=== PATIENT | male | born 1930 | race Two or more races ===

== ENCOUNTER 2016-10-06 01:42 | Emergency (ER) | payer MEDICARE, OTHER ==
[~2016-10-06] VITALS: Ht 172.7 cm; Wt 38.6 kg
[~2016-10-06 01:42] MED LIST: ALEVE220 MG PO; ASPIR 8181 MG PO; ASPIRIN EC325 MG PO; COREG12.5 MG PO; LISINOPRIL20 MG PO; NITROGLYCERIN0.4 MG SL
[2016-10-06] MEDS ORDERED: NORCO 5-325 TA1 EACH PO (03:49)
[2016-10-06] MEDS ORDERED: MELOXICAM15 MG PO (03:49)
== END 2016-10-06 04:08 | disposition home or self-care (01) ==
LOC: ED 01:42
DX: M54.2 Cervicalgia (principal); F17.200 Nicotine dependence, unspecified, uncomplicated; Z88.0 Allergy status to penicillin; Z79.82 Long term (current) use of aspirin
CPT/HCPCS: 70450; 72125; 96372; 99284; J1885

== ENCOUNTER 2017-07-21 23:13 | Emergency (ER) | payer MEDICARE, OTHER ==
[~2017-07-21] VITALS: Ht 172.7 cm; Wt 84.4 kg
--- OUTSIDE RECORDS SUMMARY | ~2017-07-21 | XMS | Clinical Summary ---
Demographics + + + | Address | [address] | | | [place] [address] | + + + | Home Phone | | + + + | Preferred Language | Unknown | + + + | Marital Status | | + + + | Orthodox Affiliation | Unknown | + + + | Race | Unknown | + + + | Ethnic Group | Unknown | + + + Author + + + | Author | [facility] | + + + | Organization | [facility] | + + + | Address | Unknown | + + + | Phone | Unavailable | + + + Support + + +---------+ + | Name | Relationship | Address | Phone | + + +---------+ + | Tip Stringer | ECON | Unknown | | + + +---------+ + | Shanti Win | ECON | Unknown | | + + +---------+ + | Detailed,Message | ECON | Unknown | | + + +---------+ + Care Team Providers + +------+ + | Care Fuel Assembler Name | Role | Phone | + +------+ + | Sammy Zimmerman | PP | | + +------+ + Allergies + + + + + + | Active Allergy | Reactions | Severity | Noted | Comments | | | | | Date | | + + + + + + | Penicillins | Hives, Shortness of | High | 07/01/19 | | | | Breath | | 14 | | + + + + + + Current Medications + + +--------+---------+------+------+-------+ | Prescription | Sig. | Disp. | Refills | Star | End | Statu | | | | | | t | Date | s | | | | | | Date | | | + + +--------+---------+------+------+-------+ | aspirin 81 MG EC | Take 81 mg by mouth | | | | | Activ | | tablet | daily with | | | | | e | | | breakfast. | | | | | | + + +--------+---------+------+------+-------+ | nitroGLYCERIN | Place 1 tablet under | 25 | 3 | 11/2 | | Activ | | (NITROSTAT) 0.4 MG | the tongue every 5 | tablet | | 4/20 | | e | | SL tablet | (five) minutes as | | | 15 | | | | | needed for Chest | | | | | | | | pain. | | | | | | + + +--------+---------+------+------+-------+ | carvedilol (COREG) | Take 1 tablet by | 180 | 3 | 03/2 | | Activ | | 12.5 MG tablet | mouth 2 (two) times | tablet | | 3/20 | | e | | | daily. | | | 16 | | | + + +--------+---------+------+------+-------+ | lisinopril | Take 1 tablet by | 90 | 3 | 03/0 | | Activ | | (ZESTRIL) 10 MG | mouth daily. | tablet | | 9/20 | | e | | tablet | | | | 17 | | | + + +--------+---------+------+------+-------+ Active Problems + + + | Problem | Noted Date | + + + | CAD (coronary artery disease) | 06/29/2013 | + + + + + | Last Assessment & Plan: Low grade CAD, LVEF 55%. 84yo | | NAIM, doing relatively well, he minimally active active, | | complaining of exertional shortness of breath and fatigue, he is | | unaware of any orthopnea or PND, no significant edema. He has | | relatively mild chronic stable angina. In the last 6 months is | | only used nitroglycerin once. Denies any chest pain at rest. | | Complicated by DJD, and place with the assistance of a cane. | | Device stable. Echocardiogram shows LVEF stable, valvular heart | | disease is not significant. His labs reviewed with patient. | | Tolerating medications. No changes in therapy. Again he is | | encouraged to stop smoking.Hx CABG: noHx PCI/stent: noHx | | Pacemaker/ICD: 01/23/2009, Medtronic Adapta [id number], SN: | | [id number].Last Cath, 04/18/2008: luminal irreg, LVEF 55%.Last | | Echo, 04/25/2015: moderate LV enlargement (IVSd 12mm, LVPWd 10mm, | | LVEDd 58mm), LVEF 55-60%, inferior hypokinesis, pacing catheters | | in RA.RV, trace AI, trace TR, est systolic PAP 27-32mmHg.Last | | Stress Test, [facility], 07/12/2013: large apical infarction, no | | ischemia, LVEF 39%.ECG, 04/19/2015: AV-paced 100%. | + + + + + | Cardiomyopathy, nonischemic | 06/29/2013 | + + + + + | Last Assessment & Plan: Non-ischemic CM. Stable, no signs of | | heart failure.Last Echo, 04/25/2015: moderate LV enlargement | | (IVSd 12mm, LVPWd 10mm, LVEDd 58mm), LVEF 55-60%, inferior | | hypokinesis, pacing catheters in RA.RV, trace AI, trace TR, est | | systolic PAP 27-32mmHg. | + + + + + | Cardiac pacemaker in situ | 06/29/2013 | + + + + + | Last Assessment & Plan: 3rd degree AVB, pacemaker therapy. | | Device stable.Pacemaker/ implanted 01/23/2009, Medtronic Adapta | | ADDR01, SN: [id number].Pacemaker interrogated by Dr Macdonald, | | 04/19/2015: AAI-R <-> DDD-R (60/130), battery at 2.77V, 4+yrs, | | device stable, A-paced 78%, V-paced >100%, Mode Switch <0.1%, | | rare HVR, longest <7sec non-sustained VT, 171bpm. | + + + + + | Hypertension | 06/29/2013 | + + + + + | Last Assessment & Plan: Hypertension, controlled, continue | | current meds at current dose (carvedilol, lisinopril). Recent | | labs reviewed with patient.Lab, 04/20/2015: T Chol: 138, LDL-Chol: | | 86, HDL-Chol: 36, Tri Liver | | enzymes NML, K: 4.7, BUN/Cr: 14/1.2 (GFR 59), glu: 121 | | TSH: 1.91, free T4: 1.21 | + + + + + | Diabetes mellitus, type 2 | 06/29/2013 | + + + + + | Last Assessment & Plan: DM2, diet controlled, managed by PCP. | + + + + + | Smoker | 06/29/2013 | + + + | Hepatic abscess | 01/18/2011 | + + + + + | Overview: The patient has a 5.1 x 9.5 cm hepatic abscess with | | cultures from his blood and the abscess cavity positive for | | Klebsiella pneumoniae, sensitive to Cipro. He is taking Cipro as | | well as oral Flagyl for amoebic coverage, and will ultimately | | need therapy with a luminal agent for amoeba. The plan is to have | | a CT scan on January 24 following which she will be seen | | in the interventional radiology clinic to determine whether or | | not a drain needs to be placed or can safely be placed. He was | | instructed to followup in the infectious diseases clinic in 2 | | weeks, the week of January 27. | + + Family History + + +------+ + | Medical History | Relation | Name | Comments | + + +------+ + | Heart disease | Father | | | + + +------+ + | Heart disease | Mother | | | + + +------+ + | Kidney disease | Mother | | | + + +------+ + + +------+ + + | Relation | Name | Status | Comments | + +------+ + + | Father | | | heart disease | | | | (Age | | | | | 68) | | + +------+ + + | Mother | | | DMII,renal disease, heart disease | | | | (Age | | | | | 79) | | + +------+ + + Social History + + + +--------+------+ | Tobacco Use | Types | Packs/Day | Years | Date | | | | | Used | | + + + +--------+------+ | Current Every Day | Cigarettes | 0.7 | 63 | | | Smoker | | | | | + + + +--------+------+ + +------+---+---+ | Smokeless Tobacco: | Chew | | | | Former User | | | | + +------+---+---+ + + | Comments: chewed tobacco 10 years | + + + + +---------+ + | Alcohol Use | Drinks/We | oz/Week | Comments | | | ek | | | + + +---------+ + | No | 0 | 0.0 | Drank heavily past hx. | | | Standard | | | | | drinks or | | | | | | | | | | equivalen | | | | | t | | | + + +---------+ + + + + | Sex Assigned at | Date Recorded | | | | + + + | Not on file | | + + + Last Filed Vital Signs + + + + | Vital Sign | Reading | Time Taken | + + + + | Blood Pressure | 116/60 | 05/31/2015 10:08 AM PST | + + + + | Pulse | 66 | 05/31/2015 10:08 AM PST | + + + + | Temperature | - | - | + + + + | Respiratory Rate | 18 | 05/31/2015 10:08 AM PST | + + + + | Oxygen Saturation | 96% | 05/31/2015 10:08 AM PST | + + + + | Inhaled Oxygen | - | - | | Concentration | | | + + + + | Weight | 90.4 kg (199 lb 3.2 | 05/31/2015 10:08 AM PST | | | oz) | | + + + + | Height | 172.7 cm (5' 8") | 05/31/2015 10:08 AM PST | + + + + | Body Mass Index | 30.29 | 05/31/2015 10:08 AM PST | + + + + Plan of Treatment + + + + + | Health Maintenance | Due Date | Last Done | Comments | + + + + + | Diabetic Eye Exam | | | | | | 3 | | | + + + + + | Diabetic Foot Exam | | | | | | 3 | | | + + + + + | Microalbumin | | | | | Screening | 3 | | | + + + + + | Vaccine: | | | | | Dtap/Tdap/Td (1 - | 2 | | | | Tdap) | | | | + + + + + | Vaccine: Zoster (#1) | | | | | | 3 | | | + + + + + | Vaccine: | | | | | Pneumococcal 65+ | 8 | | | | Low/Medium Risk (1 | | | | | of 2 - PCV13) | | | | + + + + + | Hemoglobin A1c | | 01/15/2011 | | | | 2 | | | + + + + + | Vaccine: Influenza | | | | | (Season Ended) | 8 | | | + + + + + Results Not on filefrom Last 3 Months Insurance + +--------+ +------+-------+ + | Payer | Benefi | Subscriber | Type | Phone | Address | | | t Plan | ID | | | | | | / | | | | | | | Group | | | | | + +--------+ +------+-------+ + | MEDICARE | MEDICA | xxxxxxxxxx | | | [address] | | | RE | | | | [place] [address] | | | IP-OP | | | | | + +--------+ +------+-------+ + | [employer] | YELLOW | xxxxxxxxx | | | | | PLANS | [place] | | | | | + +--------+ +------+-------+ + + +--------+ +--------+ + + | Guarantor Name | Accoun | Relation to | Date | Phone | Billing Address | | | t Type | Patient | of | | | | | | | | | | + +--------+ +--------+ + + | MONI GREENWOOD | Person | Self [birth year] | Home: | [address] | | | al/Fam | | [phone] | [phone] | [place] | | | [place]andrika | | | [phone] | [phone] | + +--------+ +--------+ + +
--- OUTSIDE RECORDS SUMMARY | ~2017-07-21 | XMS | Clinical Summary ---
Demographics + + + | Address | [address] | | | [place] [address] | + + + | Home Phone | | + + + | Preferred Language | Unknown | + + + | Marital Status | | + + + | Baptism Affiliation | Unknown | + + + | Race | Unknown | + + + | Ethnic Group | Unknown | + + + Author + + + | Author | [email or web address] | + + + | Organization | [facility] | + + + | Address | [...] Team Providers + +------+ + | Care Multimedia Programmer Name | Role | Phone | + [...] 01/23/2009, Medtronic Adapta ADDR01, SN: | | [id number].Last Cath, 04/18/2008: luminal irreg, LVEF 55%.Last | | Echo, 04/25/2015: moderate LV enlargement (IVSd 12mm, LVPWd 10mm, | | LVEDd 58mm), LVEF 55-60%, inferior hypokinesis, pacing catheters | | in RA.RV, trace AI, trace TR, est systolic PAP 27-32mmHg.Last | | Stress Test, [facility], 07/12/2013: large apical infarction, no | | [...] 01/23/2009, Medtronic Adapta | | ADDR01, SN: [id number].Pacemaker interrogated by Dr Macdonald, | | 04/19/2015: [...] | RE | | | | [place] [address] | | | IP-OP | | | | | + +--------+ +------+-------+ + | [facility] | YELLOW | xxxxxxxxx | | [...] | Self | [birth year] | Home: | [address] | | | al/Fam | | [phone] | [phone] | [place] | | | [place] | | | [phone] | [phone] | + +--------+ +--------+ + +
[~2017-07-21 23:13] MED LIST changes: +MELOXICAM15 MG PO; +NORCO 5-325 TA1 EACH PO
[2017-07-22] MEDS ORDERED: LEVAQUIN750 MG PO (01:09)
--- NOTE | 2017-07-22 17:47 | EKG ---
[facility] [address] [facility] [place], [place] [address] Signed Sinus tachycardia Ventricular-paced rhythm Abnormal ECG No previous ECGs available Confirmed by ANANDA LAURENT MD ([id number]) on 07/22/2017 5:46:59 PM Electronically Signed By: ANANDA LAURENT MD 07/22/17 1747 PATIENT NAME: MONI PARKER Electrocardiogram DATE OF : 34 PHYSICIAN: ANANDA LAURENT MD REPORT #: [id number] REPORT IS CONFIDENTIAL AND NOT TO BE RELEASED WITHOUT AUTHORIZATION
== END 2017-07-22 01:35 | disposition home or self-care (01) ==
LOC: ED 23:13
DX: D72.829 Elevated white blood cell count, unspecified (principal); F17.200 Nicotine dependence, unspecified, uncomplicated; Z88.0 Allergy status to penicillin; Z79.899 Other long term (current) drug therapy
CPT/HCPCS: 71045; 80053; 81001; 83605; 85025; 87040; 87077; 87186; 87502; 93005; 93010; 99284

== ENCOUNTER 2019-05-25 00:15 | Emergency (ER) | payer MEDICARE, OTHER ==
[~2019-05-25] VITALS: Ht 172.7 cm; Wt 78.0 kg
[~2019-05-25 00:15] MED LIST changes: +LASIX40 MG PO; +LEVAQUIN750 MG PO; +POTASSIUM CHLO20 ME1 PO
[2019-05-25] MEDS ORDERED: ALEVE220 MG PO (00:36)
--- NOTE | 2019-05-26 11:14 | EKG ---
[facility] [address] [facility] [place] [address] Signed Atrial-sensed ventricular-paced rhythm with frequent premature ventricular complexes Abnormal ECG When compared with ECG of 22-MAR-2018 22:21, premature ventricular complexes are now present Vent. rate has increased BY 13 BPM Confirmed by ABBY HERNANDEZ DO ([id number]) on 05/26/2019 11:14:39 AM Electronically Signed By: ABBY HERNANDEZ DO 05/26/19 1114 PATIENT NAME: MONI PARKER Electrocardiogram DATE OF : 34 PHYSICIAN: ABBY HERNANDEZ DO REPORT #: [id number] REPORT IS CONFIDENTIAL AND NOT TO BE RELEASED WITHOUT AUTHORIZATION
== END 2019-05-25 02:07 | disposition home or self-care (01) ==
LOC: ED 00:15
DX: R57.9 Shock, unspecified (principal); F17.200 Nicotine dependence, unspecified, uncomplicated; Z88.0 Allergy status to penicillin; Z79.899 Other long term (current) drug therapy; Z95.0 Presence of cardiac pacemaker
CPT/HCPCS: 71045; 80053; 83735; 83880; 84484; 85025; 93005; 93010; 99284-25

== ENCOUNTER 2019-06-07 15:37 | Emergency (ER) | payer MEDICARE, OTHER ==
[~2019-06-07] VITALS: Ht 172.7 cm; Wt 78.0 kg
--- OUTSIDE RECORDS SUMMARY | 2019-06-07 15:40 | XMS ---
PreManage Notification: MONI PARKER Security [employer] Events No recent Security Events currently on file CRITERIA MET - [facility] - 2 Visits in 30 Days CARE PROVIDERS There are no care providers on record at this time. Quyn[facility] has no Care Guidelines for this patient. [facility] VIS[facility] COUNT (12 MO.) [facility] T[facility] NOTE: Visits indicate total known visits. ED/C VISIT TRACKING (12 MO.) 06/07/2019 15:37 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
[2019-06-07] MEDS ORDERED: ULTRAM50 MG PO (19:18)
--- NOTE | 2019-06-08 13:43 | EKG ---
[facility] [address] [facility] [place] [address] Signed AV dual-paced rhythm Possible Right ventricular hypertrophy Lateral infarct , age undetermined Abnormal ECG When compared with ECG of 25-MAY-2019 00:30, premature ventricular complexes are no longer present premature supraventricular complexes are now present Vent. rate has increased BY 55 BPM Confirmed by ABBY HERNANDEZ DO ([id number]) on 06/08/2019 1:42:52 PM Electronically Signed By: ABBY HERNANDEZ DO 06/08/19 1343 PATIENT NAME: MONI PARKER Electrocardiogram DATE OF : 34 PHYSICIAN: ABBY HERNANDEZ DO REPORT #: [id number] REPORT IS CONFIDENTIAL AND NOT TO BE RELEASED WITHOUT AUTHORIZATION
== END 2019-06-07 19:43 | disposition home or self-care (01) ==
LOC: ED 15:37
DX: K57.12 Diverticulitis of small intestine without perforation or abscess without bleeding (principal); F17.200 Nicotine dependence, unspecified, uncomplicated; Z95.0 Presence of cardiac pacemaker; Z90.49 Acquired absence of other specified parts of digestive tract; Z88.0 Allergy status to penicillin; Z79.899 Other long term (current) drug therapy
CPT/HCPCS: 71045; 74176; 80053; 83690; 83735; 84484; 85025; 93005; 93010; 99284-25

== ENCOUNTER 2022-04-29 09:46 | Inpatient (IN) | payer MEDICARE, OTHER ==
[~2022-04-29] VITALS: Ht 172.7 cm; Wt 64.8 kg
[~2022-04-29 09:46] MED LIST changes: +ULTRAM50 MG PO
--- NOTE | 2022-04-29 13:45 | NUR ---
PATIENT ARRIVES TO CCU VIA STRETCHER. PT PULLED X2 PERSON TO CCU BED. PT IS TIRED AND HARD TO UNDERSTAND - MOUTH MOISTENED AND A LITTLE EASIER. PT DENIES PAIN BUT STATES, "I'M HUNGRY AND COLD." PT ADMITTED FOR HYPERKALEMIA AND GUERO. 1400 LABS TO BE DRAWN. PT REC'D 2 L BOLUS IN ER AND IS NOW TO RECEIVE LR AT 150 ML/HR. PT NPO BUT IS AWAKE AND ASKING FOR SOMETHING TO DRINK. PT HAS YET TO VOID AND DENIES THE NEED AT THIS TIME. ASSESSMENT COMPLETE. LUNGS ARE CLEAR AND SP02 IS 99-100% ON ROOM AIR. BOTH IV SITES FLUSHING WELL. HEEL PROTECTORS APPLIED TO BILATERAL HEELS. PT ORIENTED TO ROOM/CALL LIGHT AND BED. PT IN AN AV PACED RHYTHM AT 60. BP ON ARRIVAL 144/44. WILL CONTINUE TO MONITOR.
--- NOTE | 2022-04-29 14:37 | NUR ---
ECHO DONE AT THIS TIME. PT TOLERATED WELL.
--- NOTE | 2022-04-29 15:21 | NUR ---
PATIENT STILL UNABLE TO VOID. BLADDER SCANNED FOR >1051 ML. MD UPDATED AND ORDER REC'D TO PLACE MULLER CATHETER. ORDER ALSO REC'D TO ALLOW CLEAR LIQUIDS.
--- NOTE | 2022-04-29 17:49 | NUR ---
PATIENT USES CALL LIGHT AND STATES, "I NEED TO GO INTO THAT BATHROOM." PATIENT STATES HE NEEDS TO HAVE A BM. UP TO BSC X1 ASSIST TO BSC. PT UNABLE TO HAVE A BM, AND THEN HELPED BACK TO BED. BED ALARM BACK ON AND PT RESTING. PT DENIES FURTHER NEEDS.
--- NOTE | 2022-04-29 18:26 | NUR ---
PATIENT SITTING UP IN BED AND EATING CLEAR LIQUIDS - TOLERATING WELL. PT ABLE TO FEED HIMSELF.
--- NOTE | 2022-04-29 19:34 | NUR ---
PATIENT UP TO BSC TO HAVE A BM AND WAS ABLE TO HAVE A LARGE FORMED BM THAT WAS SOFT. GUIAC NEGATIVE. STOOL WAS SOMEWHAT ON THE DARK SIDE. CONTINUE TO MONITOR.
--- NOTE | 2022-04-29 19:45 | NUR ---
PT ASSESSED AND FOUND TO BE RESTING IN BED, ALERT AND ORIENTED X 3 WITH GENERALIZED CONFUSION TO DATE AND TIME. PT MOVES ALL FOUR EXTREMITIES WITH PURPOSE. CMS INTACT X 4. PT REQUESTING TO USE THE BEDSIDE COMMODE. PT TRANSFERRED USING A ONE PERSON ASSIST. PT WITH NOTED BM. PT CLEANED AND TRANSFERRED BACK TO BED. MULLER CATHETER CLEANED WITH CHG WIPE. V/S ASSESSED. SAFETY CHECK PERFORMED AND ALARM LIMITS SET. BED ALARM TURNED ON, AND PT WITH WITH NURSE CALL LIGHT.
--- NOTE | 2022-04-29 22:09 | EKG ---
[facility] [address] [facility] [place] [address] Signed Atrial-sensed ventricular-paced rhythm with prolonged AV conduction Abnormal ECG When compared with ECG of 07-JUN-2019 15:41, Vent. rate has decreased BY 19 BPM Confirmed by DEVON LI MD ([id number]) on 04/29/2022 10:08:56 PM Electronically Signed By: DEVON LI MD 04/29/22 2209 PATIENT NAME: MONI PARKER KALLI Electrocardiogram DATE OF : 34 PHYSICIAN: DEVON LI MD REPORT #: [id number] REPORT IS CONFIDENTIAL AND NOT TO BE RELEASED WITHOUT AUTHORIZATION
--- NOTE | 2022-04-30 06:52 | NUR ---
PT REMAINS AWAKE, ALERT AND ORIENTED WITH GENERALIZED CONFUSION TO DATE AND TIME. PT CONTINUES TO MOVE ALL FOUR EXTREMITIES WITH PURPOSE. CMS INTACT X 4. PT IS NOTED TO BE AGITATED AND WOULD LIKE TO BE SENT HOME. PT AGREEABLE TO AWAIT FOR PROVIDER TO CONSULT NEED FOR FURTHER HOSPITALIZATION. PT HAS BEEN AN AV PACED RHYTHM, NORMOTENSIVE AND A-FEBRILE. PT WITH ADEQUATE U/O, LAST BM NOTED ON 04/29. LABS: K REMAINS UNCHANGES AT 6. CREATININE IMPROVED TO 2.85. H/H 6.5/19.9. PT HAS RECEIVED A TOTAL OF 5 LITERS OF FLUID THROUGHOUT ADMISSION. PT MENTATION UNCHANGED. PT WITH NO COMPLAINTS OF PAIN OR DISCOMFORT.
--- NOTE | 2022-04-30 07:30 | NUR ---
REPORT RECIEVED. RESTING IN BED. IVF PATENT. MULLER CATH PATENT.
--- NOTE | 2022-04-30 07:50 | NUR ---
PATIENT AWKE IN BED, VITALS AND I&OS CHARTED. PATIENT REFUSES TO GET UP TO CHAIR FOR BREAKFAST OR SIT HIGHER IN BED, STATES HE JUST "WANTS TO GET THE HELL OUT OF HERE." RN NOTIFIED CALL LIGHT IN EASY REACH, NO OTHER NEEDS AT THIS TIME.
--- NOTE | 2022-04-30 08:00 | NUR ---
ASSESSMENT DONE. AWAKE, STATES HE IS GOING TO GO HOME. ASKING WHEN DOCTOR WILL BE HERE. DENIES PAIN.
--- NOTE | 2022-04-30 09:00 | NUR ---
TOOK CLEAR LIQUIDS WELL. DENIES NAUSEA. DR. LI TALKED WITH PATIENT ABOUT RECIEVING BLOOD TRANSFUSION. PATEINT REFUSING. I TALKED WITH PATIENT ABOUT THIS AGAIN, CONTINUES TO REFUSE.
--- NOTE | 2022-04-30 10:30 | NUR ---
PATIENT NOTED TO BE SCOOTING OUT OF BED, THIS AIR CONDITIONING SUPERVISOR TO ASSIST. PATIENT DENIES WANTING TO GET IN CHAIR, BUT SAT AT SIDE OF BED FOR 10-15 MINUTES. PARTIAL BEDBATH PROVIDED, HAIR BRUSHED, AND LINEN CHANGED. PATIENT NOW BACK INTO BED, PERSONAL ITEMS AND CALL LIGHT IN EASY REACH
--- NOTE | 2022-04-30 11:00 | NUR ---
RESTLESS. SHAVE GIVEN WITH PATIENT SITTING AT BEDSIDE. HAIR WASHED. C/O FEELING WEAK AND TIRED.
--- NOTE | 2022-04-30 11:15 | NUR ---
TRANSFER TO MED-SURG ORDERS RECIEVED. MONIOR OFF.
--- NOTE | 2022-04-30 12:00 | NUR ---
PATIENT DAUGHTER HERE. TALKED WITH HERE REGARDING CURRENT TREATMENT, PATIENT LABS AND OVER STATUS. PATIENT SITTING UP IN BED FOR LUNCH.
--- NOTE | 2022-04-30 13:00 | NUR ---
OOB TO COMMODE TO HAVE LARGE SEMI LIQUID VERY FOUL SMELLING STOOL. WILL ASK MD IF A STOOL SAMPLE SHOULD BE SENT TO LAB. PATIENT BACK TO BED WITH ASSIST. VERY WEAK AND UNSTEADY WITH TRANSFERS. TOOK LUNCH WELL.
--- NOTE | 2022-04-30 13:04 | NUR ---
SPOKE WITH DAUGHTER ABOUT DISCHARGE PLAN.PATIENT LIVES WITH DAUGHTER AND WILL GO HOME ON DISCHARGE AND CONTINUE CURRENT LIVING ARRANGEMENTS.
--- NOTE | 2022-04-30 16:53 | NUR ---
PATIENT MOVED FROM BED TO CHAIR WITH 2PA. PATIENT HAS CALL LIGHT WITHIN REACH, DENIES OTHER NEEDS.
--- NOTE | 2022-04-30 18:51 | NUR ---
PATIENT UP TO BATHROOM WITH 2 PERSON ASSIST. PATIENT HAD FORMED BM, REFUSED DINNER. FAMILY IN ROOM TO VISIT.
--- NOTE | 2022-04-30 19:30 | NUR ---
received bedside report from offgoing shift. hourly rounding initiated.
--- NOTE | 2022-04-30 20:03 | NUR ---
IN PT ROOM FOR VS AND ASSESSMENT. PT RESTING ON BACK, FAMILY NOW GONE. PT COOPERATIVE WITH VS AND ASSESSMENT, NO COMPLAINT OF PAIN OR DISCOMFORT, PT SEEN TO HAVE APPROPRIATE INTERACTIONS WITH STAFF
--- NOTE | 2022-04-30 21:53 | NUR ---
In pt room to assist with bed. pt wants to get up and go home, informed there were no services available for a transport home at this time, laid back in bed without incident.
--- NOTE | 2022-04-30 23:20 | NUR ---
In pt room to answer call light. pt trying to get out of bed, assisted to the bathroom and back to bed without incident. Pt call light in reach, bed alarm on.
--- NOTE | 2022-05-01 01:01 | NUR ---
in pt room for rounding. pt resting, breathing even and unlabored, no complaint of pain. call light in reach
--- NOTE | 2022-05-01 02:25 | NUR ---
IN PT ROOM FOR ROUNDING. PT RESTING ON BACK, NO COMPLAINT OF PAIN OR DISCOMFORT, CALL LIGHT IN REACH
--- NOTE | 2022-05-01 03:16 | NUR ---
IN PT ROOM FOR ROUNDING. PT IS LAYING ON SIDE, BED ALARM ON, CALL LIGHT IN REACH, NO COMPLAINT OF PAIN OR DISCOMFORT.
--- NOTE | 2022-05-01 03:52 | NUR ---
IN PT ROOM FOR ROUNDING. PT RESTING ON BACK, NO INDICATION OF PAIN, CALL LIGHT IN REACH.
--- NOTE | 2022-05-01 05:43 | NUR ---
IN PT ROOM FOR MEDICATION ADMINISTRATION. PT VS TAKEN, I&O DOCUMENTED. PT METOPROLOL HELD DUE TO MED ORDER HOLD IF BP SYS <100 (BP 95/64). STANDING WEIGHT COMPLETED. CALL LIGHT IN REACH, NO COMPLAINT OF PAIN OR DISCOMFORT
--- NOTE | 2022-05-01 05:47 | NUR ---
IN PT ROOM FOR ROUNDING. PT CALL LIGHT IN REACH, NO COMPLAINT OF PAIN OR DISCOMFORT.
--- NOTE | 2022-05-01 07:11 | NUR ---
PT REFUSED TO GET UP TO CHAIR. PT TOLD SUPERVISOR EVAPORATOR TO LEAVE HIM ALONE. CALL LIGHT WITHIN REACH NO FURTHER TASKS
--- NOTE | 2022-05-01 07:20 | NUR ---
PT IN BED, RESP EVEN, EYES CLOSED, CALL LIGHT IN REACH - REPORT FROM CIPRIANO SANCHEZ, WHITE BOARD UPDATED. CONT. TO MONITOR.
--- NOTE | 2022-05-01 08:44 | NUR ---
in to assist pt to chair. pt refused. pt sitting up in bed for meal. call light within reach no further tasks at this time
[2022-05-01] MEDS ORDERED: COREG6.25 MG PO (09:32)
[2022-05-01] MEDS ORDERED: ZESTRIL20 MG PO (09:32)
--- NOTE | 2022-05-01 10:02 | NUR ---
rn in for assessment and meds, pt eyes closed, resp even and unlabored - re started iv in left arm - flushed well - pt continued to sleep during cares and assess - held po meds due to sound sleep and earlier in am pt declined all cares/ stated he just wanted to go home. will attempt po meds again when pt is rested. iv fluids running at 100 ml hr. miner cath draining pale yellow urine wnl.
--- NOTE | 2022-05-01 11:00 | NUR ---
Pt resting in bed, does not respond when asked questions.
--- NOTE | 2022-05-01 11:40 | NUR ---
PT RESTING IN BED, ALARM ON, CALL LIGHT IN REACH - VISIBLE TO RN STATION. EYES CLOSED, RESP EVEN, DID NOT DISTURB.
--- NOTE | 2022-05-01 13:00 | NUR ---
Notified by and staff, pt not wanting treatment. Attempted to call daughter, voice mail is full and cannot leave a message.
--- NOTE | 2022-05-01 13:29 | NUR ---
pt offered lunch tray multiple times. pt refused.
--- NOTE | 2022-05-01 13:45 | NUR ---
rn spoke with dr - pt declines miner and wants removed. pt refused flomax po and student rn jerrod and instructor payton removed miner cath per dr anders - wnl. iv was also removed - infilterated left ac - wnl site, no iv replace per pt request and dr aware. pt offered fluids and intake and stated "i don't eat or drink at home, I don't want any here, quit asking me."
--- NOTE | 2022-05-01 14:08 | NUR ---
MED REC COMPLETE
--- NOTE | 2022-05-01 14:30 | NUR ---
Notified by staff, pts daughterShanti is here. To room and therapists are in the room with the pt attempting therapy. Rn and Daughter in room and pt is angry with his daughter. Asked daughter to step into the high to speak. Discussed with daughter, pt is very angry. He is calling family members to take him home and stating he does not want her living in his home. She states she is aware as family are calling her. I asked if she is willing to cont. to help him. She is in the home during the day,but works swing shift. She states it depends. I asked how we can help her and she states she would like me to tell her how we can help. Let her know I can assist with equipment and resources. I cannot place pt as he is refusing placement and all treatment. Let her know I cannot legally make pt stay if he does not want to. Pt has signed a POLST form with Dr. Decker to be a DNR. We returned to the room and pt called Shanti a "bitch" several times and would not look at her. I asked him why he was so mad at her. He states she sent him to the hospital and he did not want to be here.We discussed the EMS brought him to the hospital. He and daughter argued and she left. Per Dr. Decker, she will no longer provide care. I returned to the room and spoke with Lalo. He cont. to state he is going home. I asked if he had worked with PT and he declined. I asked if he can walk. He states he does fine in his home. His daughter had also stated this. He cannot walk far, but does ok in the home. He gave me Kami (niece by marriage) phone to call. She requested I can her Jose Martin. Shanti messaged her and does not plan on providing care. Called and left a message for Jose Martin. PT, Se[facility]ity stopped by my office and pt did refuse PT, but there were several people in the room and he was upset.
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
--- NOTE | 2022-05-01 14:45 | NUR ---
dr livingston in with pt and his daughter - pt wants to go home alone, daughter stated she will open the door but not stay, inspite of her stating that she lives at his house. this rn present when discussed dc plan and daughter walked out. dr david assured pt that she would continue to work on his plan of care and try to see what could be arrainged for a safe discharge. pt agreed to wait a bit. agrees to vitals at this time, refuses intake or offers for food/drink.
--- NOTE | 2022-05-01 15:40 | NUR ---
pt call light answered. pt stated "where is my ride" i asked pt where he was going and pt stated "i am going home" i let pt know i would ask his rn. rn notified
--- NOTE | 2022-05-01 16:08 | NUR ---
Spoke with Ronni. Updated to all. He states pt has stated he does not want treatment. Pt has been calling him and is attempting to dress. He states he will pick him up as pt plans on calling a taxi. He will work out with family to assist this pt. He thinks the pts daughter will help him. He states Shanti brought the pt clothes to go home. Dr. Decker notified and will write dc orders.
--- NOTE | 2022-05-01 16:23 | NUR ---
pt getting out of bed on own, yazmin dc planner intern in - let us know that Ronni nephew was on way to get him, pt said good. staff assisting him to dress - original dnr polst form registered and returned to pt for home and dr livingston her completing dc paperwork - charge coordinator mary working on dc papers.
== END 2022-05-01 16:55 | disposition home or self-care (01) | DRG 682 ==
LOC: ED 09:46 → CCU 11:57 → MS 04-30 14:25
PROVIDERS: ADMIT Internal Medicine; ATTEND Internal Medicine
DX: N17.9 Acute kidney failure, unspecified (principal); G93.41 Metabolic encephalopathy; Z20.822 Contact with and (suspected) exposure to COVID-19; Z66 Do not resuscitate; Z51.5 Encounter for palliative care; E87.5 Hyperkalemia; R63.4 Abnormal weight loss; D64.9 Anemia, unspecified; N18.9 Chronic kidney disease, unspecified; R62.7 Adult failure to thrive; F17.210 Nicotine dependence, cigarettes, uncomplicated; E86.0 Dehydration; Z68.21 Body mass index [BMI] 21.0-21.9, adult; Z95.0 Presence of cardiac pacemaker; Z90.49 Acquired absence of other specified parts of digestive tract; Z96.1 Presence of intraocular lens; Z98.890 Other specified postprocedural states; Z88.0 Allergy status to penicillin; Z79.899 Other long term (current) drug therapy
CPT/HCPCS: 36415; 71045; 80048; 80053; 81001; 83605; 83735; 84484; 85025; 86850; 86900; 86901; 87502; 93005; 93010; 93306; C9113; C9803; J1815; J7030; J7121; U0003